=== PATIENT | male | born 1955 | race Caucasian/White ===

== ENCOUNTER 2023-12-23 10:03 | Inpatient (IN) | payer OTHER ==
[~2023-12-23] VITALS: Ht 177.8 cm; Wt 112.0 kg
[2023-12-23] VITALS (30 sets, daily range): BP systolic 83–139; BP diastolic 54–119; PULSE 101–143; RESP 15–37; TEMP 96–97.8; O2SAT 92–98
[2023-12-23] MEDS: LIDOCAINE 2%HCL (LOCAL ANESTH.) INJ 20ML MDV ONE (10:13)
[2023-12-23] MEDS: HEPARIN IN NS 1000Units/500mL 1,500 ML ONE (10:13)
[2023-12-23] MEDS: IODIXANOL 320MG/ML 100ML BTL IV ONE (10:13)
[2023-12-23] MEDS: HEPARIN SODIUM (PORCINE) 5000 UNITS/ML 1ML VIAL IV ONE (10:25)
[2023-12-23] MEDS: CLOPIDOGREL 300 MG TAB PO ONE (10:25)
[2023-12-23] MEDS: ANGIOMAX 250 MG VIAL IV ONE (10:29)
[2023-12-23] MEDS: fentaNYL CITRATE 100 MCG/2 ML VL ONE (10:29)
[2023-12-23] MEDS: SODIUM CHL 0.9% 0 ML ONE (10:30)
[2023-12-23] MEDS: VERAPAMIL 2.5MG/ML INJ 2ML VIAL IV ONE (10:30)
[2023-12-23] MEDS ORDERED: HEPARIN DRIP/D5W 100UNITS/ML 250 ML IV SCH (10:30)
[2023-12-23] MEDS: MIDAZOLAM HCL 2MG/2ML 2ml VIAL (1mg/ml) ONE (10:30)
[2023-12-23 10:31] LABS: Basophils # (auto) 0 10 ^3/uL (0-0.2); Basophils % (auto) 0.2 % (0.0-2.0); Eosinophils # (auto) 0 10 ^3/uL (0-0.8); Eosinophils % (auto) 0.1 % (0.0-7.0); Hematocrit 42.4 % (41.0-53.0); Hemoglobin 14.2 g/dL (13.5-17.5); Lymphocytes # (auto) 0.6 10 ^3/uL (0.4-5.4); Lymphocytes % (auto) 2.5 % (10.0-50.0); Mean Corpuscular Hemoglobin 35.7 pg (28.0-32.0); Mean Corpuscular Hgb Conc. 33.5 g/dL (32.0-36.0); Mean Corpuscular Volume 106.8 fL (80.0-100.0); Monocytes # (auto) 1.6 10 ^3/uL (0-1.3); Monocytes % (auto) 6.7 % (0.0-12.0); Neutrophils # (auto) 21.7 10 ^3/uL (1.6-8.6); Neutrophils % (auto) 90.5 % (37.0-80.0); Red Blood Cells 3.97 10^6/uL (4.5-5.90); Red Cell Distribution Width 13.7 % (11.8-14.3); White Blood Cell 23.9 10^3/uL (4.4-10.8)
[2023-12-23] MEDS: CLOPIDOGREL BISULFATE 75 MG TAB ONE (10:43)
[2023-12-23] MEDS: HEPARIN SODIUM (PORCINE) 5000 UNITS/ML 1ML VIAL ONE (10:43)
[2023-12-23 10:48] LABS: INR 1.24 (0.9-1.15); Prothrombin Time 12.8 sec (9.3-11.8)
[2023-12-23 11:01] LABS: Alanine Aminotransferase 42 U/L (7-40); Albumin 3.2 g/dL (3.2-4.8); Alkaline Phosphatase 95 U/L (46-116); Anion Gap 17 (5-15); Aspartate Aminotransferase 44 U/L (13-40); BUN/Creatinine Ratio 20.8 (10.0-20.0); Bilirubin, Total 3.8 mg/dL (0.2-1.0); Calcium 8.9 mg/dL (8.7-10.4); Carbon Dioxide 16 mmol/L (20-30); Chloride 84 mmol/L (98-107); Lipase 420 U/L (12-53)
[2023-12-23 11:12] LABS: Glucose 680 mg/dL (74-106)
[2023-12-23 11:13] LABS: Blood Urea Nitrogen 109 mg/dL (9-23); Sodium 117 mmol/L (136-145)
[2023-12-23] MEDS ORDERED: SODIUM CHL 3% 500 ML IV ONE (11:15)
[2023-12-23] MEDS ORDERED: DEXTROSE (50%) 50ML SYRG IV PRN ×3 (12:00→22:45)
[2023-12-23] MEDS ORDERED: POTASSIUM CHL 20MEQ/100ML 200 ML IV PRN (12:00)
[2023-12-23] MEDS ORDERED: POTASSIUM CHL 20MEQ/100ML 100 ML IV PRN (12:00)
[2023-12-23] MEDS ORDERED: ALBUTEROL SULF 2.5 MG/0.5ML(0.5%) NEB SOLN NEB PRN ×2 (12:00→14:00)
[2023-12-23] MEDS: SODIUM CHLORIDE 0.9% 1,000 ML IV ONE (12:20)
[2023-12-23 12:49] LABS: Bilirubin, Direct 1.9 mg/dL (<0.3)
[2023-12-23 13:08] LABS: Magnesium 2.4 mg/dL (1.6-2.6)
[2023-12-23] MEDS: SODIUM CHLORIDE 0.9% 1,000 ML IV SCH (13:20)
[2023-12-23] MEDS: ACCU-CHEK COMFORT CURVE STRIP VI SCH (13:30)
[2023-12-23] MEDS: INSULIN DRIP 100 UNIT/100ML 100 ML IV SCH ×2 (13:33→15:15)
[2023-12-23] MEDS: INSULIN LANTUS (GLARGINE) 1 /0.01ml (100units/ml) SC ONE (13:45)
[2023-12-23] MEDS: IPRATROPIUM BROM 0.5 MG/2.5ML INH SOL NEB SCH (13:52)
[2023-12-23] MEDS: cefTRIAXone 1GM/50ML D5W 50 ML IV ONE (15:35)
[2023-12-23] MEDS: AZITHROMYCIN 500MG/ 250ML 250 ML IV ONE (15:35)
[2023-12-23] MEDS: ALBUTEROL SULF 2.5 MG/0.5ML(0.5%) NEB SOLN NEB SCH (15:52)
[2023-12-23] MEDS ORDERED: SODIUM CHLORIDE 0.9% 1,000 ML IV SCH ×2 (16:00→18:00)
[2023-12-23] MEDS ORDERED: HYDROcodone-ACET 10/325MG TAB PO PRN (17:00)
[2023-12-23 17:17] LABS: Alanine Aminotransferase 37 U/L (7-40); Albumin 3.1 g/dL (3.2-4.8); Alkaline Phosphatase 84 U/L (46-116); Anion Gap 13 (5-15); Aspartate Aminotransferase 42 U/L (13-40); BUN/Creatinine Ratio 17.8 (10.0-20.0); Calcium 8.7 mg/dL (8.5-10.1); Carbon Dioxide 17 mmol/L (20-30); Chloride 89 mmol/L (98-107); Potassium 4.5 mmol/L (3.5-5.1)
[2023-12-23 17:18] LABS: Total Protein 6.8 g/dL (5.7-8.2)
[2023-12-23 17:23] LABS: Blood Urea Nitrogen 90 mg/dL (9-23); Glucose 537 mg/dL (74-106); Sodium 119 mmol/L (136-145)
[2023-12-23] MEDS: HYDROcodone-ACET 5/325MG TAB PO PRN (17:25)
[2023-12-23] MEDS: AMIODARONE BOLUS KIT 100 ML IV ONE (17:43)
[2023-12-23] MEDS: FOLIC ACID 1 MG, MAGNESIUM SULF SDV 50% 8 MEQ, MULTIPLE VITAMIN 10 ML, THIAMINE INJ 100... INJ SCH (18:00)
[2023-12-23] MEDS: AMIODARONE 450mg/250ml AE 250 ML IV SCH (18:08)
[2023-12-23] MEDS: D5W/ SOD CHL 0.9%/KCL 20MEQ 1,000 ML IV SCH (21:17)
[2023-12-23] MEDS: ATORVASTATIN 20 MG TAB PO SCH (21:28)
[2023-12-23 22:27] LABS: Alanine Aminotransferase 39 U/L (7-40); Albumin 3.1 g/dL (3.2-4.8); Alkaline Phosphatase 84 U/L (46-116); Anion Gap 15 (5-15); Aspartate Aminotransferase 45 U/L (13-40); BUN/Creatinine Ratio 14.6 (10.0-20.0); Calcium 8.4 mg/dL (8.7-10.4); Carbon Dioxide 13 mmol/L (20-30); Chloride 95 mmol/L (98-107); Sodium 123 mmol/L (136-145)
[2023-12-23 22:28] LABS: Bilirubin, Total 2.2 mg/dL (0.2-1.0); Total Protein 7.1 g/dL (5.7-8.2)
[2023-12-23 22:36] LABS: Blood Urea Nitrogen 75 mg/dL (9-23); Glucose 113 mg/dL (74-106)
[2023-12-23] MEDS: LACTULOSE 20Gm/30ML SOLN PO SCH (23:10)
[2023-12-23] MEDS: SODIUM BICARB 8.4% 50Meq/50ml SYR Vial IV ONE (23:10)
[2023-12-24] VITALS (37 sets, daily range): BP systolic 90–170; BP diastolic 37–108; PULSE 94–105; RESP 14–37; TEMP 96.1–97.5; O2SAT 90–96
[2023-12-24] MEDS: ACCU-CHEK COMFORT CURVE STRIP VI SCH
[2023-12-24] MEDS: AMIODARONE 450mg/250ml AE 250 ML IV SCH (00:07)
[2023-12-24 02:53] LABS: Alanine Aminotransferase 36 U/L (7-40); Albumin 2.9 g/dL (3.2-4.8); Alkaline Phosphatase 76 U/L (46-116); Anion Gap 16 (5-15); Aspartate Aminotransferase 46 U/L (13-40); Blood Urea Nitrogen 74 mg/dL (9-23); Calcium 8.2 mg/dL (8.7-10.4); Carbon Dioxide 15 mmol/L (20-30); Chloride 95 mmol/L (98-107); Glucose 169 mg/dL (74-106); Potassium 4.1 mmol/L (3.5-5.1); Sodium 126 mmol/L (136-145); Total Protein 6.6 g/dL (5.7-8.2)
[2023-12-24 05:27] LABS: Basophils # (auto) 0 10 ^3/uL (0-0.2); Basophils % (auto) 0.1 % (0.0-2.0); Eosinophils # (auto) 0 10 ^3/uL (0-0.8); Eosinophils % (auto) 0.1 % (0.0-7.0); Hematocrit 37.4 % (41.0-53.0); Hemoglobin 12.9 g/dL (13.5-17.5); Lymphocytes # (auto) 1.1 10 ^3/uL (0.4-5.4); Lymphocytes % (auto) 3.7 % (10.0-50.0); Mean Corpuscular Hemoglobin 35.2 pg (28.0-32.0); Mean Corpuscular Hgb Conc. 34.4 g/dL (32.0-36.0); Mean Corpuscular Volume 102.2 fL (80.0-100.0); Monocytes # (auto) 2.3 10 ^3/uL (0-1.3); Monocytes % (auto) 7.9 % (0.0-12.0); Neutrophils # (auto) 25.7 10 ^3/uL (1.6-8.6); Neutrophils % (auto) 88.2 % (37.0-80.0); Nucleated Red Blood Cells % 0.2 %; Red Blood Cells 3.65 10^6/uL (4.5-5.90); Red Cell Distribution Width 13.8 % (11.8-14.3); White Blood Cell 29.2 10^3/uL (4.4-10.8)
[2023-12-24 06:00] LABS: Alanine Aminotransferase 38 U/L (7-40); Albumin 2.9 g/dL (3.2-4.8); Alkaline Phosphatase 74 U/L (46-116); Anion Gap 16 (5-15); Aspartate Aminotransferase 58 U/L (13-40); BUN/Creatinine Ratio 14.3 (10.0-20.0); Blood Urea Nitrogen 77 mg/dL (9-23); Carbon Dioxide 14 mmol/L (20-30); Chloride 95 mmol/L (98-107); Glucose 171 mg/dL (74-106); Lipase 264 U/L (12-53); Potassium 4.4 mmol/L (3.5-5.1); Sodium 125 mmol/L (136-145)
[2023-12-24 06:01] LABS: Bilirubin, Total 1.8 mg/dL (0.2-1.0); Total Protein 6.6 g/dL (5.7-8.2)
[2023-12-24] MEDS: INSULIN DRIP 100 UNIT/100ML 100 ML IV SCH (07:15)
[2023-12-24] MEDS: cefTRIAXone 1GM/50ML D5W 50 ML IV SCH (07:40)
[2023-12-24 07:57] LABS: Giant Platelets Few; Macrocytosis Slight; Platelet Estimate Decreased
[2023-12-24] MEDS: ENOXAPARIN SOD 30 MG/0.3 ML SYRINGE SC SCH (08:24)
[2023-12-24] MEDS: ASPirin 81 mg TAB PO SCH (08:24)
[2023-12-24] MEDS: AZITHROMYCIN 500MG/ 250ML 250 ML IV SCH (08:24)
[2023-12-24] MEDS ORDERED: SOD CHL 0.45% IV SCH (09:00)
[2023-12-24] MEDS ORDERED: SODIUM BICARB IV SCH (09:00)
[2023-12-24 09:36] LABS: Base Excess -7.6 mmol/L (-2.0-2.0)
[2023-12-24] MEDS ORDERED: ENOXAPARIN SOD 40 MG/0.4 ML SYRINGE SC SCH (10:00)
[2023-12-24] MEDS: LIDOCAINE 1% (LOCAL ANESTH.) PF 5ml SDV ID ONE (10:46)
[2023-12-24 11:45] LABS: Alanine Aminotransferase 38 U/L (7-40); Albumin 2.8 g/dL (3.2-4.8); Alkaline Phosphatase 74 U/L (46-116); Anion Gap 12 (5-15); Aspartate Aminotransferase 54 U/L (13-40); BUN/Creatinine Ratio 17.1 (10.0-20.0); Bilirubin, Total 1.7 mg/dL (0.2-1.0); Calcium 7.7 mg/dL (8.7-10.4); Carbon Dioxide 18 mmol/L (20-30); Chloride 96 mmol/L (98-107); Glucose 251 mg/dL (74-106); Potassium 4.2 mmol/L (3.5-5.1); Sodium 126 mmol/L (136-145); Total Protein 4.8 g/dL (5.7-8.2)
[2023-12-24 11:49] LABS: Blood Urea Nitrogen 97 mg/dL (9-23)
[2023-12-24] MEDS: SODIUM BICARB 50mEq/50ml Vial 150 ML in D5W 5% 1,000 ML IV SCH (12:00)
[2023-12-24] MEDS ORDERED: VANCOMYCIN PER PHARMACY 0 MG IV SCH (13:30)
[2023-12-24] MEDS: VANCOMYCIN 1GM/200ML 200 ML IV ONE (14:26)
[2023-12-24 14:30] LABS: Alanine Aminotransferase 42 U/L (7-40); Albumin 2.9 g/dL (3.2-4.8); Alkaline Phosphatase 79 U/L (46-116); Anion Gap 13 (5-15); Aspartate Aminotransferase 63 U/L (13-40); BUN/Creatinine Ratio 15.9 (10.0-20.0); Bilirubin, Total 1.6 mg/dL (0.2-1.0); Calcium 8.3 mg/dL (8.5-10.1); Carbon Dioxide 18 mmol/L (20-30); Chloride 96 mmol/L (98-107); Glucose 203 mg/dL (74-106); Potassium 4.1 mmol/L (3.5-5.1); Sodium 127 mmol/L (136-145); Total Protein 6.5 g/dL (5.7-8.2)
[2023-12-24 14:33] LABS: Blood Urea Nitrogen 95 mg/dL (9-23)
[2023-12-24 18:37] LABS: Urine Bacteria NONE SEEN /hpf (None Seen); Urine Blood 3+ /uL (Negative); Urine Clarity CLOUDY (Clear); Urine Color PINK (Yellow); Urine Protein, UAD 2+ (Negative); Urine Urobilinogen Normal (Negative); Urine WBC 2920 /hpf (0 - 3); Urine WBC Clumps PRESENT /hpf (None Seen)
[2023-12-24 18:42] LABS: Urine Specific Gravity > 1.035 (1.001-1.035)
[2023-12-24 18:47] LABS: Amphetamine Screen, Urine Neg (NEGATIVE); Barbiturate Scree,Urine Neg (NEGATIVE); Benzodiazephine Screen, Urine Neg (NEGATIVE); Cocaine Screen, Urine Neg (NEGATIVE); Opiate Scree,Urine Neg (NEGATIVE)
[2023-12-24 18:48] LABS: Cannabinoid Screen, Urine Neg (NEGATIVE); Creatinine, Urine 37.82 mg/dL (30.0-125.0); Phencyclidine Screen, Urine Neg (NEGATIVE)
[2023-12-24 18:51] LABS: Protein, Urine 344.8 mg/dL (0.0-11.9)
[2023-12-24 19:04] LABS: Alanine Aminotransferase 46 U/L (7-40); Albumin 2.8 g/dL (3.2-4.8); Alkaline Phosphatase 77 U/L (46-116); Anion Gap 13 (5-15); Aspartate Aminotransferase 73 U/L (13-40); BUN/Creatinine Ratio 15.3 (10.0-20.0); Bilirubin, Total 1.6 mg/dL (0.2-1.0); Calcium 7.8 mg/dL (8.7-10.4); Carbon Dioxide 19 mmol/L (20-30); Chloride 96 mmol/L (98-107); Glucose 222 mg/dL (74-106); Sodium 128 mmol/L (136-145)
[2023-12-24 19:05] LABS: Total Protein 6.4 g/dL (5.7-8.2)
[2023-12-24 19:09] LABS: Blood Urea Nitrogen 92 mg/dL (9-23)
[2023-12-24 22:23] LABS: Alanine Aminotransferase 46 U/L (7-40); Alkaline Phosphatase 75 U/L (46-116); Anion Gap 13 (5-15); Calcium 7.5 mg/dL (8.7-10.4); Carbon Dioxide 19 mmol/L (20-30); Chloride 96 mmol/L (98-107); Glucose 224 mg/dL (74-106); Potassium 3.9 mmol/L (3.5-5.1); Sodium 128 mmol/L (136-145)
[2023-12-24 22:24] LABS: Albumin 2.7 g/dL (3.2-4.8); Aspartate Aminotransferase 74 U/L (13-40); BUN/Creatinine Ratio 14.9 (10.0-20.0); Bilirubin, Total 1.5 mg/dL (0.2-1.0); Total Protein 6.3 g/dL (5.7-8.2)
[2023-12-24] MEDS: SODIUM CHLOR 0.9% PF (SALINE LOCK) 10ML VIAL/SYR IV SCH (22:24)
[2023-12-24 22:25] LABS: Blood Urea Nitrogen 90 mg/dL (9-23)
[2023-12-25] VITALS (30 sets, daily range): BP systolic 94–124; BP diastolic 46–92; PULSE 91–104; RESP 14–94; TEMP 96.4–97.9; O2SAT 21–95
[2023-12-25 05:54] LABS: Anion Gap 13 (5-15); Carbon Dioxide 21 mmol/L (20-30); Chloride 95 mmol/L (98-107); Potassium 3.9 mmol/L (3.5-5.1); Sodium 129 mmol/L (136-145)
[2023-12-25 05:55] LABS: Calcium 7.4 mg/dL (8.7-10.4)
[2023-12-25 05:59] LABS: Hematocrit 35.3 % (41.0-53.0); Hemoglobin 12.3 g/dL (13.5-17.5); Mean Corpuscular Hemoglobin 35.8 pg (28.0-32.0); Mean Corpuscular Hgb Conc. 34.7 g/dL (32.0-36.0); Mean Corpuscular Volume 103.2 fL (80.0-100.0); Red Blood Cells 3.42 10^6/uL (4.5-5.90); Red Cell Distribution Width 13.8 % (11.8-14.3); White Blood Cell 20.6 10^3/uL (4.4-10.8)
[2023-12-25 06:00] LABS: BUN/Creatinine Ratio 18.6 (10.0-20.0); Glucose 211 mg/dL (74-106)
[2023-12-25 06:02] LABS: Basophils % (manual) 0 (0.0-2.0); Blast Cells 0; Eosinophils % (manual) 0 (0-7); Myelocytes % 0; Promyelocytes % 0; Reactive Lymphocytes 0
[2023-12-25 06:14] LABS: Blood Urea Nitrogen 116 mg/dL (9-23)
[2023-12-25] MEDS: INSULIN DRIP 100 UNIT/100ML 100 ML IV SCH (07:39)
[2023-12-25 08:11] LABS: Band Neutrophils % (manual) 7; Lymphocytes % (manual) 8 (10.0-50.0); Metamyelocytes % 2; Monocytes % (manual) 11 (0-12)
[2023-12-25 08:12] LABS: Platelet Estimate Decreased
[2023-12-25 08:13] LABS: Macrocytosis Slight
[2023-12-25] MEDS: AMIODARONE HCL 200 MG TAB PO SCH (09:58)
[2023-12-25] MEDS: VANCOMYCIN 500 MG in D5W 5% 100 ML IV ONE (10:53)
[2023-12-25 11:09] LABS: Chloride 94 mmol/L (98-107); Potassium 3.9 mmol/L (3.5-5.1); Sodium 126 mmol/L (136-145)
[2023-12-25 11:10] LABS: Anion Gap 11 (5-15); Calcium 7.6 mg/dL (8.5-10.1); Carbon Dioxide 21 mmol/L (20-30)
[2023-12-25 11:15] LABS: BUN/Creatinine Ratio 15.2 (10.0-20.0); Glucose 272 mg/dL (74-106)
[2023-12-25 11:29] LABS: Blood Urea Nitrogen 96 mg/dL (9-23)
[2023-12-25] MEDS ORDERED: DEXTROSE (50%) 50ML SYRG IV PRN ×2 (11:30→16:45)
[2023-12-25] MEDS: INSULIN LANTUS (GLARGINE) 1 /0.01ml (100units/ml) SC SCH (11:48)
[2023-12-25] MEDS ORDERED: ACCU-CHEK COMFORT CURVE STRIP VI SCH (12:00)
[2023-12-25] MEDS ORDERED: InsuLIN REG 1unit/0.01ml Soln (100units/ml) SC SCH (12:00)
[2023-12-25] MEDS: CEFTAROLINE 200 MG in SODIUM CHL 0.9% 100 ML IV SCH (12:43)
[2023-12-25] MEDS: BUMETANIDE 2.5mg/10ml (0.25 mg/ml) INJ IV ONE (12:46)
[2023-12-25] MEDS: ACCU-CHEK COMFORT CURVE STRIP VI SCH ×2 (13:59→20:00)
[2023-12-25] MEDS: InsuLIN REG 1unit/0.01ml Soln (100units/ml) SC SCH ×2 (14:06→20:46)
[2023-12-25] MEDS: GABAPENTIN 100 MG CAP PO SCH (17:27)
[2023-12-25] MEDS: LACTULOSE 20Gm/30ML SOLN PO SCH (17:27)
[2023-12-26] VITALS (20 sets, daily range): BP systolic 90–99; BP diastolic 45–65; PULSE 87–107; RESP 12–40; TEMP 97–97.7; O2SAT 92–97
[2023-12-26 06:01] LABS: Hemoglobin 12.3 g/dL (13.5-17.5)
[2023-12-26 06:04] LABS: Mean Corpuscular Hemoglobin 35.6 pg (28.0-32.0); Mean Corpuscular Hgb Conc. 34.3 g/dL (32.0-36.0); Mean Corpuscular Volume 103.7 fL (80.0-100.0); Red Blood Cells 3.47 10^6/uL (4.5-5.90); Red Cell Distribution Width 14.2 % (11.8-14.3); White Blood Cell 17.8 10^3/uL (4.4-10.8)
[2023-12-26 06:14] LABS: Basophils % (manual) 0 (0.0-2.0); Blast Cells 0; Eosinophils % (manual) 0 (0-7); Metamyelocytes % 0; Myelocytes % 0; Promyelocytes % 0; Reactive Lymphocytes 0
[2023-12-26 06:20] LABS: Alanine Aminotransferase 61 U/L (7-40); Albumin 2.7 g/dL (3.2-4.8); Alkaline Phosphatase 94 U/L (46-116); Anion Gap 15 (5-15); Aspartate Aminotransferase 76 U/L (13-40); BUN/Creatinine Ratio 19.7 (10.0-20.0); Calcium 7.1 mg/dL (8.7-10.4); Carbon Dioxide 19 mmol/L (20-30); Chloride 92 mmol/L (98-107); Glucose 247 mg/dL (74-106); Magnesium 2.9 mg/dL (1.6-2.6); Phosphorus 7.9 mg/dL (2.4-5.1); Potassium 4.3 mmol/L (3.5-5.1); Sodium 126 mmol/L (136-145)
[2023-12-26 06:21] LABS: Bilirubin, Total 1.5 mg/dL (0.2-1.0); Total Protein 6.2 g/dL (5.7-8.2)
[2023-12-26 06:56] LABS: Blood Urea Nitrogen 125 mg/dL (9-23)
[2023-12-26] MEDS ORDERED: INSULIN LANTUS (GLARGINE) 1 /0.01ml (100units/ml) SC SCH (09:30)
[2023-12-26 09:35] LABS: Band Neutrophils % (manual) 6; Lymphocytes % (manual) 7 (10.0-50.0)
[2023-12-26 09:36] LABS: Monocytes % (manual) 10 (0-12)
[2023-12-26 09:37] LABS: Macrocytosis Slight; Platelet Estimate Decreased; Tear Drop Cells FEW
[2023-12-26] MEDS: LACTULOSE 20Gm/30ML SOLN PO SCH (14:00)
[2023-12-26] MEDS: IODIXANOL 320MG/ML 100ML BTL IV ONE (16:35)
[2023-12-26] MEDS: LIDOCAINE 2%HCL (LOCAL ANESTH.) INJ 20ML MDV ONE (16:35)
[2023-12-26] MEDS: HEPARIN SODIUM (PORCINE) 5000 UNITS/ML 1ML VIAL ONE (16:57)
[2023-12-26] MEDS: MIDAZOLAM HCL 2MG/2ML 2ml VIAL (1mg/ml) ONE (16:57)
[2023-12-26] MEDS: fentaNYL CITRATE 100 MCG/2 ML VL ONE (16:57)
[2023-12-26] MEDS: ceFAZolin 1GM/50ML 50 ML IV ONE (16:57)
[2023-12-26] MEDS: DOXYCYCLINE 100MG/250ML 250 ML IV SCH (18:12)
[2023-12-26] MEDS: BUMETANIDE INJECTION 12.5 MG in GIVE UN-DILUTED 0 ML IV SCH (20:59)
[2023-12-27] VITALS (30 sets, daily range): BP systolic 93–107; BP diastolic 54–68; PULSE 91–110; RESP 8–30; TEMP 96.8–97.8; O2SAT 93–99
[2023-12-27] MEDS: INSULIN LANTUS (GLARGINE) 1 /0.01ml (100units/ml) SC SCH (06:54)
[2023-12-27] MEDS: SODIUM CHL 0.9% 1000 ML BAG XX ONE (07:00)
[2023-12-27 10:05] LABS: Chloride 96 mmol/L (98-107); Potassium 4.2 mmol/L (3.5-5.1); Sodium 128 mmol/L (136-145)
[2023-12-27 10:06] LABS: Anion Gap 9 (5-15); Carbon Dioxide 23 mmol/L (20-30)
[2023-12-27 10:07] LABS: Calcium 7.8 mg/dL (8.5-10.1)
[2023-12-27 10:11] LABS: BUN/Creatinine Ratio 17.1 (10.0-20.0); Glucose 153 mg/dL (74-106)
[2023-12-27 10:12] LABS: Blood Urea Nitrogen 78 mg/dL (9-23)
[2023-12-27] MEDS: THIAMINE HCL 100 MG TAB PO SCH (10:17)
[2023-12-27] MEDS: NOREPINEPHRINE 8 MG/250ML KIT 250 ML IV SCH (14:15)
[2023-12-27] MEDS: LIDOCAINE 2% (LOCAL ANESTH.) PF 5ml SDV ONE (17:26)
[2023-12-27] MEDS: PANTOPRAZOLE 40 MG TAB PO SCH (17:30)
[2023-12-28] VITALS (58 sets, daily range): BP systolic 82–114; BP diastolic 41–68; PULSE 91–119; RESP 10–30; TEMP 97–98.3; O2SAT 92–98
[2023-12-28] MEDS ORDERED: ALBUMIN 25% 100 ML IV SCH (03:15)
[2023-12-28] MEDS: SODIUM CHL 0.9% 1000 ML BAG XX ONE (07:22)
[2023-12-28 08:18] LABS: Hematocrit 33.3 % (41.0-53.0); Hemoglobin 11.5 g/dL (13.5-17.5); Mean Corpuscular Hemoglobin 35.5 pg (28.0-32.0); Mean Corpuscular Hgb Conc. 34.5 g/dL (32.0-36.0); Mean Corpuscular Volume 103.1 fL (80.0-100.0); Red Blood Cells 3.23 10^6/uL (4.5-5.90); Red Cell Distribution Width 14.3 % (11.8-14.3); White Blood Cell 14.8 10^3/uL (4.4-10.8)
[2023-12-28 08:23] LABS: Basophils % (manual) 0 (0.0-2.0); Blast Cells 0; Metamyelocytes % 0; Promyelocytes % 0; Reactive Lymphocytes 0
[2023-12-28 08:24] LABS: Alanine Aminotransferase 70 U/L (7-40); Albumin 3.6 g/dL (3.2-4.8); Alkaline Phosphatase 124 U/L (46-116); Anion Gap 10 (5-15); Aspartate Aminotransferase 95 U/L (13-40); BUN/Creatinine Ratio 17.3 (10.0-20.0); Bilirubin, Total 1.9 mg/dL (0.2-1.0); Calcium 8.5 mg/dL (8.5-10.1); Carbon Dioxide 25 mmol/L (20-30); Chloride 97 mmol/L (98-107); Glucose 131 mg/dL (74-106); Potassium 3.2 mmol/L (3.5-5.1); Sodium 132 mmol/L (136-145); Total Protein 7.1 g/dL (5.7-8.2)
[2023-12-28 08:34] LABS: Blood Urea Nitrogen 52 mg/dL (9-23)
[2023-12-28] MEDS: POTASSIUM CHL 20MEQ/100ML 100 ML IV SCH (11:39)
[2023-12-28 13:09] LABS: Band Neutrophils % (manual) 1; Eosinophils % (manual) 1 (0-7); Lymphocytes % (manual) 4 (10.0-50.0); Monocytes % (manual) 7 (0-12); Myelocytes % 1
[2023-12-28 13:10] LABS: Platelet Estimate Decreased
[2023-12-28] MEDS: BUMETANIDE 1 MG TAB PO SCH (18:00)
[2023-12-28] MEDS: BUMETANIDE 2.5mg/10ml (0.25 mg/ml) INJ IV ONE (18:23)
[2023-12-29] VITALS (30 sets, daily range): BP systolic 81–145; BP diastolic 40–79; PULSE 83–121; RESP 11–30; TEMP 96.1–98.2; O2SAT 92–100
[2023-12-29 05:12] LABS: White Blood Cell 13.7 10^3/uL (4.4-10.8)
[2023-12-29 05:16] LABS: Hematocrit 31.5 % (41.0-53.0); Hemoglobin 10.7 g/dL (13.5-17.5); Mean Corpuscular Hemoglobin 35.3 pg (28.0-32.0); Mean Corpuscular Hgb Conc. 33.9 g/dL (32.0-36.0); Mean Corpuscular Volume 104.3 fL (80.0-100.0); Red Blood Cells 3.02 10^6/uL (4.5-5.90)
[2023-12-29 05:30] LABS: Band Neutrophils % (manual) 0; Basophils % (manual) 0 (0.0-2.0); Blast Cells 0; Metamyelocytes % 0; Promyelocytes % 0; Reactive Lymphocytes 0
[2023-12-29 08:06] LABS: Eosinophils % (manual) 2 (0-7); Lymphocytes % (manual) 7 (10.0-50.0); Macrocytosis Slight; Monocytes % (manual) 11 (0-12); Myelocytes % 2; Platelet Estimate Decreased
[2023-12-29 08:14] LABS: Hepatitis B Surface Antigen Negative (Negative)
[2023-12-29 08:34] LABS: Hepatitis A Ab IgM Negative
[2023-12-29 08:35] LABS: Hepatitis B Core IgM Negative
[2023-12-29 08:40] LABS: Hepatitis C Antibody Negative (Negative)
[2023-12-29] MEDS: metOLazone 5 MG TAB PO SCH (10:00)
[2023-12-29 13:34] LABS: Hematocrit 31.8 % (41.0-53.0)
[2023-12-29 13:36] LABS: Hemoglobin 10.7 g/dL (13.5-17.5); Mean Corpuscular Hemoglobin 35.1 pg (28.0-32.0); Mean Corpuscular Hgb Conc. 33.5 g/dL (32.0-36.0); Mean Corpuscular Volume 104.8 fL (80.0-100.0); Red Blood Cells 3.04 10^6/uL (4.5-5.90); Red Cell Distribution Width 14.1 % (11.8-14.3); White Blood Cell 14.8 10^3/uL (4.4-10.8)
[2023-12-29 13:40] LABS: Band Neutrophils % (manual) 0; Basophils % (manual) 0 (0.0-2.0); Blast Cells 0; Promyelocytes % 0; Reactive Lymphocytes 0
[2023-12-29 14:30] LABS: Eosinophils % (manual) 4 (0-7); Lymphocytes % (manual) 5 (10.0-50.0); Macrocytosis Slight; Metamyelocytes % 1; Monocytes % (manual) 5 (0-12); Myelocytes % 1; Platelet Estimate DN
[2023-12-29] MEDS: BUMETANIDE 1mg/4ml VIAL (0.25mg/ml) IV SCH (18:00)
[2023-12-29] MEDS: CEFTAROLINE 300 MG in SODIUM CHL 0.9% 250 ML IV SCH (21:10)
[2023-12-30] VITALS (65 sets, daily range): BP systolic 77–110; BP diastolic 50–67; PULSE 90–115; RESP 11–32; TEMP 96.3–97.5; O2SAT 87–98
[2023-12-30 05:55] LABS: Alanine Aminotransferase 71 U/L (7-40); Albumin 3.2 g/dL (3.2-4.8); Alkaline Phosphatase 123 U/L (46-116); Anion Gap 12 (5-15); Aspartate Aminotransferase 98 U/L (13-40); BUN/Creatinine Ratio 22.1 (10.0-20.0); Calcium 8.6 mg/dL (8.7-10.4); Carbon Dioxide 20 mmol/L (20-30); Chloride 95 mmol/L (98-107); Glucose 124 mg/dL (74-106); Potassium 3.4 mmol/L (3.5-5.1)
[2023-12-30 05:56] LABS: Total Protein 7.1 g/dL (5.7-8.2)
[2023-12-30 06:04] LABS: Blood Urea Nitrogen 81 mg/dL (9-23); Sodium 127 mmol/L (136-145)
[2023-12-30] MEDS: INSULIN LANTUS (GLARGINE) 1 /0.01ml (100units/ml) SC SCH (06:17)
[2023-12-30] MEDS ORDERED: ALBUMIN 25% 100 ML IV ONE (11:30)
[2023-12-30] MEDS ORDERED: NOREPINEPHRINE 8 MG/250ML KIT 250 ML IV ONE (11:46)
[2023-12-30] MEDS ORDERED: ALBUMIN 25% 100 ML IV PRN (12:00)
[2023-12-30] MEDS: NOREPINEPHRINE 8 MG/250ML KIT 250 ML IV SCH (12:10)
[2023-12-30] MEDS: MIDODRINE HCL 10 MG TAB PO SCH (18:22)
[2023-12-31] VITALS (100 sets, daily range): BP systolic 47–126; BP diastolic 23–85; PULSE 94–134; RESP 8–30; TEMP 97.2–97.9; O2SAT 91–96
[2023-12-31 13:32] LABS: Chloride 96 mmol/L (98-107); Potassium 3.6 mmol/L (3.5-5.1); Sodium 129 mmol/L (136-145)
[2023-12-31 13:33] LABS: Anion Gap 14 (5-15); Carbon Dioxide 19 mmol/L (20-30)
[2023-12-31 13:34] LABS: Calcium 8.7 mg/dL (8.7-10.4)
[2023-12-31 13:38] LABS: BUN/Creatinine Ratio 16.2 (10.0-20.0); Glucose 162 mg/dL (74-106)
[2023-12-31 13:45] LABS: Blood Urea Nitrogen 69 mg/dL (9-23)
[2023-12-31] MEDS: OXYBUTYNIN CHL 5 MG TAB PO SCH (15:04)
[2024-01-01] VITALS (91 sets, daily range): BP systolic 87–130; BP diastolic 28–87; PULSE 92–134; RESP 10–42; TEMP 96.1–98.5; O2SAT 89–97
[2024-01-01] MEDS: NOREPINEPHRINE 8 MG/250ML KIT 250 ML IV SCH (04:34)
[2024-01-01 05:35] LABS: Anion Gap 14 (5-15); Carbon Dioxide 17 mmol/L (20-30); Chloride 96 mmol/L (98-107); Potassium 3.8 mmol/L (3.5-5.1); Sodium 127 mmol/L (136-145)
[2024-01-01 05:36] LABS: Calcium 9.1 mg/dL (8.7-10.4)
[2024-01-01 05:41] LABS: BUN/Creatinine Ratio 13.6 (10.0-20.0); Blood Urea Nitrogen 69 mg/dL (9-23); Glucose 153 mg/dL (74-106)
[2024-01-01] MEDS: IPRATROPIUM BROM 0.5 MG/2.5ML INH SOL NEB SCH (06:58)
[2024-01-01] MEDS: ONDANSETRON HCL 4 MG/2 ML VIAL IV PRN (07:46)
[2024-01-01 10:54] LABS: Basophils # (auto) 0 10 ^3/uL (0-0.2); Eosinophils # (auto) 0.1 10 ^3/uL (0-0.8)
[2024-01-01 10:56] LABS: Basophils % (auto) 0.2 % (0.0-2.0); Eosinophils % (auto) 0.3 % (0.0-7.0); Hemoglobin 10.9 g/dL (13.5-17.5); Lymphocytes # (auto) 1.3 10 ^3/uL (0.4-5.4); Lymphocytes % (auto) 5.6 % (10.0-50.0); Mean Corpuscular Hemoglobin 34.8 pg (28.0-32.0); Mean Corpuscular Hgb Conc. 32.9 g/dL (32.0-36.0); Mean Corpuscular Volume 105.7 fL (80.0-100.0); Monocytes # (auto) 1.4 10 ^3/uL (0-1.3); Monocytes % (auto) 5.8 % (0.0-12.0); Neutrophils # (auto) 20.9 10 ^3/uL (1.6-8.6); Neutrophils % (auto) 88.1 % (37.0-80.0); Nucleated Red Blood Cells % 0.4 %; Red Blood Cells 3.12 10^6/uL (4.5-5.90); Red Cell Distribution Width 14.3 % (11.8-14.3); White Blood Cell 23.7 10^3/uL (4.4-10.8)
[2024-01-01] MEDS: ALBUTEROL SULF 2.5 MG/0.5ML(0.5%) NEB SOLN NEB PRN (18:32)
[2024-01-02] VITALS (42 sets, daily range): BP systolic 63–133; BP diastolic 38–94; PULSE 70–125; RESP 0–35; TEMP 96.3–98.5; O2SAT 75–96
[2024-01-02] MEDS: LORazepam 2MG/ML-1ML VIAL IV PRN (04:37)
[2024-01-02 04:51] LABS: Chloride 94 mmol/L (98-107); Potassium 4.2 mmol/L (3.5-5.1); Sodium 128 mmol/L (136-145)
[2024-01-02 04:52] LABS: Anion Gap 20 (5-15); Carbon Dioxide 14 mmol/L (20-30)
[2024-01-02 04:53] LABS: Calcium 9.3 mg/dL (8.5-10.1)
[2024-01-02 04:57] LABS: BUN/Creatinine Ratio 15.3 (10.0-20.0); Glucose 120 mg/dL (74-106)
[2024-01-02 05:19] LABS: Blood Urea Nitrogen 93 mg/dL (9-23)
[2024-01-02 08:19] LABS: Base Excess -15.9 mmol/L (-2.0-2.0)
[2024-01-02 08:39] LABS: Red Cell Distribution Width 14.4 % (11.8-14.3)
[2024-01-02 08:41] LABS: Hematocrit 32.6 % (41.0-53.0); Hemoglobin 10.7 g/dL (13.5-17.5); Mean Corpuscular Hgb Conc. 32.7 g/dL (32.0-36.0); Mean Corpuscular Volume 107.2 fL (80.0-100.0); Red Blood Cells 3.05 10^6/uL (4.5-5.90); White Blood Cell 29.7 10^3/uL (4.4-10.8)
[2024-01-02 08:52] LABS: Basophils % (manual) 0 (0.0-2.0); Blast Cells 0; Eosinophils % (manual) 0 (0-7); Metamyelocytes % 0; Myelocytes % 0; Promyelocytes % 0; Reactive Lymphocytes 0
[2024-01-02] MEDS: SODIUM BICARB 8.4% 50Meq/50ml SYR Vial IV ONE (09:50)
[2024-01-02] MEDS ORDERED: BUMETANIDE INJECTION 12.5 MG in GIVE UN-DILUTED 0 ML IV SCH (10:45)
[2024-01-02] MEDS ORDERED: VASOPRESSIN 20 UNITS in SODIUM CHL 0.9% 99 ML IV SCH (11:15)
[2024-01-02 11:41] LABS: Base Excess -13.9 mmol/L (-2.0-2.0)
[2024-01-02 12:16] LABS: Lactic Acid w/Reflex 5.7 mmol/L (0.4-2.0)
[2024-01-02] MEDS ORDERED: MORPHINE SULFATE INJ 2 MG/ml SYRG IV PRN (12:45)
[2024-01-02] MEDS ORDERED: LORazepam 2MG/ML-1ML VIAL IV PRN (12:45)
[2024-01-02] MEDS: MORPHINE SULFATE INJ 2 MG/ml SYRG IV ONE (13:02)
[2024-01-02] MEDS: LORazepam 2MG/ML-1ML VIAL IV ONE (13:03)
[2024-01-02 14:47] LABS: Band Neutrophils % (manual) 11; Lymphocytes % (manual) 10 (10.0-50.0); Monocytes % (manual) 6 (0-12); Platelet Estimate Decreased
[2024-01-02] MEDS ORDERED: EPOETIN ALFA-EPBX 4,000 UNIT/ML VIAL SC ONE (21:00)
== END 2024-01-02 17:20 | DRG 871 ==
LOC: ER 10:03 → EDBD 10:03 → TELE 11:46 → DOU IN ICU 14:58 → ICU CENTRL 12-31 07:53
PROVIDERS: ADMIT Internal Medicine; ATTEND Internal Medicine
PROC: B211YZZ Fluoroscopy of Multiple Coronary Arteries using Other Contrast (ICD-10-PCS; principal; 2023-12-23)
PROC: 02HV33Z Insertion of Infusion Device into Superior Vena Cava, Percutaneous Approach (ICD-10-PCS; 2023-12-24)
PROC: B548ZZA Ultrasonography of Superior Vena Cava, Guidance (ICD-10-PCS; 2023-12-24)
PROC: 0JH63XZ Insertion of Tunneled Vascular Access Device into Chest Subcutaneous Tissue and Fascia, Percutaneous Approach (ICD-10-PCS; 2023-12-27)
PROC: 02H633Z Insertion of Infusion Device into Right Atrium, Percutaneous Approach (ICD-10-PCS; 2023-12-27)
PROC: B518ZZA Fluoroscopy of Superior Vena Cava, Guidance (ICD-10-PCS; 2023-12-27)
PROC: 30233K1 Transfusion of Nonautologous Frozen Plasma into Peripheral Vein, Percutaneous Approach (ICD-10-PCS; 2023-12-27)
PROC: 5A09357 Assistance with Respiratory Ventilation, Less than 24 Consecutive Hours, Continuous Positive Airway Pressure (ICD-10-PCS; 2024-01-02)
DX: A41.01 Sepsis due to Methicillin susceptible Staphylococcus aureus (principal); E11.10 Type 2 diabetes mellitus with ketoacidosis without coma; I21.3 ST elevation (STEMI) myocardial infarction of unspecified site; G92.8 Other toxic encephalopathy; N17.0 Acute kidney failure with tubular necrosis; J15.9 Unspecified bacterial pneumonia; J96.21 Acute and chronic respiratory failure with hypoxia; J15.211 Pneumonia due to Methicillin susceptible Staphylococcus aureus; N18.6 End stage renal disease; R65.21 Severe sepsis with septic shock; T82.838A Hemorrhage due to vascular prosthetic devices, implants and grafts, initial encounter; E87.1 Hypo-osmolality and hyponatremia; I47.10 Supraventricular tachycardia, unspecified; J44.0 Chronic obstructive pulmonary disease with (acute) lower respiratory infection; J44.1 Chronic obstructive pulmonary disease with (acute) exacerbation; K92.2 Gastrointestinal hemorrhage, unspecified; N39.0 Urinary tract infection, site not specified; D68.9 Coagulation defect, unspecified; I13.2 Hypertensive heart and chronic kidney disease with heart failure and with stage 5 chronic kidney disease, or end stage renal disease; E66.01 Morbid (severe) obesity due to excess calories; F10.20 Alcohol dependence, uncomplicated; I25.10 Atherosclerotic heart disease of native coronary artery without angina pectoris; I35.0 Nonrheumatic aortic (valve) stenosis; I50.9 Heart failure, unspecified; K70.30 Alcoholic cirrhosis of liver without ascites; K76.82 Hepatic encephalopathy; E78.00 Pure hypercholesterolemia, unspecified; B95.61 Methicillin susceptible Staphylococcus aureus infection as the cause of diseases classified elsewhere; Z66 Do not resuscitate; D69.6 Thrombocytopenia, unspecified; Y84.1 Kidney dialysis as the cause of abnormal reaction of the patient, or of later complication, without mention of misadventure at the time of the procedure; E11.22 Type 2 diabetes mellitus with diabetic chronic kidney disease; Y90.9 Presence of alcohol in blood, level not specified; Z99.81 Dependence on supplemental oxygen; Z79.82 Long term (current) use of aspirin; Z68.35 Body mass index [BMI] 35.0-35.9, adult; Z87.19 Personal history of other diseases of the digestive system; Z91.199 Patient's noncompliance with other medical treatment and regimen due to unspecified reason; Z51.5 Encounter for palliative care; Z95.5 Presence of coronary angioplasty implant and graft; Y92.89 Other specified places as the place of occurrence of the external cause; Z99.2 Dependence on renal dialysis; Z79.1 Long term (current) use of non-steroidal anti-inflammatories (NSAID)
CPT/HCPCS: 36415; 36558; 36569; 36600; 70450; 71045; 76775; 76856; 76937; 80048; 80053; 80061; 80074; 80202; 80307; 81001; 82010; 82140; 82248; 82270; 82550; 82570; 82728; 82805; 82962; 83036; 83605; 83690; 83735; 83930; 84100; 84156; 84300; 84443; 84484; 85007; 85018; 85025; 85027; 85379; 85610; 85730; 86850; 86900; 86901; 86920; 87040; 87077; 87086; 87088; 87186; 87340; 90935; 93005; 93306; 93454; 93970; 94640; 94660; 97110; 97163; 97530; 99152; 99291; C1894; G0378; J0712; J1815; J2001; J2250; J2405; J3480; J3490; J7060; P9047; Q9967